=== PATIENT | female | born 2000 | race Caucasian/White ===

== ENCOUNTER 2023-10-30 08:31 | Outpatient (REF) | payer OTHER, SELFPAY ==
--- NOTE | ~2023-10-30 | US_ITS ---
EXAMINATION: US PELVIS CLINICAL INFORMATION: Pelvic pain, IUD insertion on October 19, 2023, spotting, Mirena. COMPARISON: None available. TECHNIQUE: Ultrasound of the pelvis is performed using both transabdominal and transvaginal transducers along with Doppler. Transvaginal imaging is performed due to inadequate visualization transabdominally. FINDINGS: The uterus is anteverted and measures 5.6 x 2.3 x 4.1 cm. No discrete fibroids are appreciated. No significant free fluid. IUD in place within the endometrial cavity. Right ovary measures 2.1 x 1.7 x 2.7 cm, volume 5.1 mL. Left ovary measures 2.5 x 2.2 x 2.2 cm, volume 6.0 mL. US/US pelvic and transvaginal IMPRESSION: IUD in place within the endometrial cavity. This study was presented today, October 30, 2023 for interpretation. Stat results provided at this time as requested by referring provider.
== END 2023-10-30 08:32 | disposition home or self-care (01) ==
LOC: HO.UMASIMG 08:31
PROVIDERS: Visit Provider Nurse Practitioner Women's Health
DX: R10.2 Pelvic and perineal pain (principal); Z97.5 Presence of (intrauterine) contraceptive device
CPT/HCPCS: 76830; 76856